=== PATIENT | female | born 1970 | race African-American/Black ===

== ENCOUNTER 2017-11-01 23:47 | Emergency (ER) | payer MEDICAID ==
[~2017-11-01] VITALS: Ht 170.2 cm; Wt 77.3 kg
[2017-11-02 02:16] LABS: BASOPHILS % (AUTO) 0.6 % (0.0-2.0); EOSINOPHILS % (AUTO) 0.4 % (1.0-6.0); HEMATOCRIT 36.4 % (36-46); HEMOGLOBIN 12.2 g/dL (12.0-16.0); LYMPHOCYTES # (AUTO) 2.6 K/uL (1.0-4.8); LYMPHOCYTES % (AUTO) 23.1 % (22.0-44.0); MEAN CORPUSCULAR HEMOGLOBIN 30.3 pg (26.0-34.0); MEAN CORPUSCULAR HGB CONC 33.6 G/dL (31.0-37.0); MEAN CORPUSCULAR VOLUME 90 fL (80-100); MONOCYTES # (AUTO) 0.6 K/uL (0.1-1.0); MONOCYTES % (AUTO) 5.1 % (2.0-9.0); NEUTROPHILS % (AUTO) 70.8 % (40.0-70.0); PLATELET COUNT (AUTO) 319 K/uL (150-450); RED BLOOD CELL COUNT(AUTO) 4.03 MIL/uL (4.00-5.20); RED CELL DISTRIBUTION WIDTH 14.5 % (11.5-14.5)
[2017-11-02 02:23] LABS: ANION GAP 7 mmol/L (8-16); CALCIUM, TOTAL 8.7 mg/dL (8.8-10.5); CARBON DIOXIDE 25 mmol/L (22-29); CHLORIDE 106 mmol/L (98-107); CREATININE 0.95 mg/dL (0.60-1.30); GLOMERULAR FILTR. RATE CALC > 60 mL/min (>60); GLUCOSE,RANDOM 147 mg/dL (70-110); POTASSIUM 3.2 mmol/L (3.5-5.1); SODIUM SERUM 138 mmol/L (136-145); UREA NITROGEN, BLOOD 13 mg/dL (7-18)
[2017-11-02 02:29] LABS: ALANINE AMINOTRANSFERASE 16 U/L (12-78); ALBUMIN 3.5 g/dL (3.4-5.0); ALKALINE PHOSPHATASE 66 U/L (46-116); ASPARTATE AMINOTRANSFERASE 16 U/L (15-37); BILIRUBIN,TOTAL 0.3 mg/dL (0.1-1.0)
[2017-11-02 03:25] LABS: AMPHET/METH SCREEN,URINE NEGATIVE (NEGATIVE); BARBITURATE SCREEN, URINE NEGATIVE (NEGATIVE); BENZODIAZEPINES SCREEN,URINE NEGATIVE (NEGATIVE); CANNABINOID SCREEN,URINE NEGATIVE (NEGATIVE); COCAINE SCREEN,URINE POSITIVE (NEGATIVE); METHADONE SCREEN, URINE NEGATIVE (NEGATIVE); OPIATE SCREEN,URINE NEGATIVE (NEGATIVE)
[2017-11-02 03:26] LABS: PHENCYCLIDINE SCREEN,URINE NEGATIVE (NEGATIVE)
[2017-11-02] MEDS ORDERED: POTASSIUM CHLORIDE 20 MEQ ER TABLET PO ONE (03:45)
[2017-11-02 04:00] VITALS: BP 114/8
== END 2017-11-02 04:19 | disposition home or self-care (01) ==
LOC: EMS 23:48
DX: E87.6 Hypokalemia (principal); R42 Dizziness and giddiness; R53.1 Weakness; F20.9 Schizophrenia, unspecified
CPT/HCPCS: 36415; 80053; 80307; 85025; 99284; G0480

== ENCOUNTER 2019-10-30 10:41 | Emergency (ER) | payer MEDICAID ==
[~2019-10-30] VITALS: Ht 170.2 cm; Wt 81.8 kg
[2019-10-30 11:46] VITALS: BP 155/96
== END 2019-10-30 12:09 | disposition home or self-care (01) ==
LOC: EMS 10:59
DX: L02.413 Cutaneous abscess of right upper limb (principal); F20.9 Schizophrenia, unspecified; F15.90 Other stimulant use, unspecified, uncomplicated
CPT/HCPCS: 99283; Z7502

== ENCOUNTER 2020-05-12 13:08 | Emergency (ER) | payer MEDICAID ==
[~2020-05-12] VITALS: Ht 170.2 cm; Wt 72.7 kg
[2020-05-12] MEDS ORDERED: SULFAMETHOX/TRIMETH DS 800-160 MG/TABLET PO ONE (14:45)
[2020-05-12] MEDS ORDERED: CEPHALEXIN MONOHYDRATE 500 MG CAPSULE PO ONE (14:45)
[2020-05-12 15:12] VITALS: BP 141/81
== END 2020-05-12 15:19 | disposition home or self-care (01) ==
LOC: EMS 13:13
DX: L03.115 Cellulitis of right lower limb (principal); F20.9 Schizophrenia, unspecified; F19.90 Other psychoactive substance use, unspecified, uncomplicated
CPT/HCPCS: 99283